=== PATIENT | female | born 2005 | race Two or more races ===

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

== ENCOUNTER 2025-01-13 09:40 | Inpatient (IN) | payer OTHER ==
[2025-01-13] MEDS: LACTATED RINGERS SOLUTION 1,000 ML/1,000 ML INFUS.BAG IV SCH (10:15)
[2025-01-13 11:21] VITALS: BMI 31.2
[2025-01-13 11:45] LABS: ABSOLUTE IMMATURE GRANULOCYTES 0.39 x10^3/uL (0.0-0.031); BASOPHILS # 0.06 x10^3/uL (0.01-0.08); EOSINOPHIL % 0.6 % (0.7-5.8); EOSINOPHILS # 0.08 x10^3/uL (0.04-0.36); HEMATOCRIT 33.3 % (34.1-44.9); HEMOGLOBIN 10.4 g/dL (11.2-15.7); MCHC 31.2 g/dl (32.2-35.5); MEAN CELL VOLUME 88.6 fl (79.4-94.8); MEAN PLT VOLUME 11.9 fl (9.4-12.3); MONOCYTE # 1.03 x10^3/uL (0.24-0.86); MONOCYTE % 7.3 % (4.7-12.5); PLATELET COUNT 130 x10^3/uL (182-369); RDW 20.7 % (12.0-16.2)
[2025-01-13 11:51] LABS: INR 1.12 (0.83-1.09); PROTHROMBIN TIME (PATIENT) 12.3 SEC (9.7-13.0)
[2025-01-13 12:04] LABS: POTASSIUM 3.9 mmol/L (3.5-5.1)
[2025-01-13 12:06] LABS: BLOOD UREA NITROGEN 6.7 mg/dL (7-18)
[2025-01-13 12:10] LABS: CREATININE 0.4 mg/dL (0.55-1.3)
[2025-01-13] MEDS: DINOPROSTONE 10 MG VAGINAL SUPPOSITORY VG ONE ×2 (13:25→16:24)
[2025-01-13] MEDS: LACTATED RINGERS SOLUTION 1,000 ML IV SCH (16:23)
[2025-01-14] MEDS ORDERED: BUTORPHANOL TARTRATE 2 MG/ML VIAL ONE (00:23)
[2025-01-14] MEDS ORDERED: PROMETHAZINE HCL 25 MG/1 ML VIAL ONE (00:23)
[2025-01-14] MEDS: BUTORPHANOL TARTRATE 2 MG/ML VIAL IVPB ONE (00:30)
[2025-01-14] MEDS: PROMETHAZINE HCL 25 MG/1 ML VIAL IVPB ONE (00:30)
[2025-01-14] MEDS ORDERED: NALOXONE HCL 0.4 MG/ML VIAL IVPUSH PRN (02:35)
[2025-01-14] MEDS ORDERED: FENTANYL/BUPIVACAINE/NS/PF - PCEA - 50 ML DISP.SYRIN EP ONE (02:35)
[2025-01-14] MEDS ORDERED: FENTANYL CITRATE/PF 50 MCG/ML VIAL ONE (02:39)
[2025-01-14] MEDS ORDERED: BUPIVACAINE HCL/PF 0.25% (2.5MG/ML) 10 ML VIAL ONE (02:39)
[2025-01-14] MEDS: FENTANYL/BUPIVACAINE/NS/PF - PCEA - 50 ML DISP.SYRIN EP SCH (02:55)
[2025-01-14] MEDS ORDERED: LIDOCAINE HCL 1% PRESERVATIVE FREE - 30ML VIAL ONE (04:19)
[2025-01-14] MEDS ORDERED: OXYTOCIN 20 UNITS in 0.9% NS 20 UNIT/1,000 ML INFUS.BAG IV ONE ×2 (04:19→07:59)
[2025-01-14] MEDS: OXYTOCIN 20 UNITS in 0.9% NS 20 UNIT/1,000 ML INFUS.BAG IV SCH (05:17)
[2025-01-14] MEDS ORDERED: MISOPROSTOL 200 MCG TABLET ONE (05:18)
[2025-01-14] MEDS: MISOPROSTOL 200 MCG TABLET PV ONE (05:19)
[2025-01-14] MEDS: MISOPROSTOL 200 MCG TABLET PR ONE (05:19)
[2025-01-14 05:20] LABS: CORD BASE EXCESS -2.4 mmol/L (0-2); CORD HCO3 22.4 mmHg (20-29); CORD HCO3 24.1 mmHg (20-29); CORD PCO2 46.1 mmHg (30-78); CORD PCO2 48.6 mmHg (30-78); CORD pH 7.305 (7.14-7.44); CORD pH 7.314 (7.14-7.44)
[2025-01-14 06:26] VITALS: RESP 18
[2025-01-14] MEDS ORDERED: WITCH HAZEL 50% (TUCKS) 40 PAD/JAR PAD TP PRN (06:40)
[2025-01-14] MEDS ORDERED: METHYLERGONOVINE MALEATE 0.2 MG/1 ML AMP IM PRN (06:40)
[2025-01-14] MEDS ORDERED: BENZOCAINE 28 GM HEMORRHOIDAL OINTMENT TP PRN (06:40)
[2025-01-14] MEDS ORDERED: ACETAMINOPHEN 325 MG TABLET (FP) PO PRN (06:40)
[2025-01-14] MEDS ORDERED: BISACODYL 10 MG SUPP.RECT RC PRN (06:40)
[2025-01-14] MEDS ORDERED: IBUPROFEN 600 MG TABLET (FP) PO ONE (07:59)
[2025-01-14] MEDS: IBUPROFEN 600 MG TABLET (FP) PO PRN (08:02)
[2025-01-14] MEDS: BENZOCAINE 20% 57 GM BOTTLE TP PRN (21:51)
[2025-01-15 08:08] LABS: HEMATOCRIT 26.6 % (34.1-44.9); HEMOGLOBIN 8.4 g/dL (11.2-15.7); MCHC 31.6 g/dl (32.2-35.5); RDW 20.2 % (12.0-16.2)
[2025-01-15 08:09] LABS: ABSOLUTE IMMATURE GRANULOCYTES 0.36 x10^3/uL (0.0-0.031); BASOPHILS # 0.08 x10^3/uL (0.01-0.08); EOSINOPHIL % 0.8 % (0.7-5.8); EOSINOPHILS # 0.12 x10^3/uL (0.04-0.36); MEAN CELL VOLUME 88.7 fl (79.4-94.8); MONOCYTE % 7.4 % (4.7-12.5); PLATELET COUNT 130 x10^3/uL (182-369)
[2025-01-15] MEDS ORDERED: SENNOSIDES/DOCUSATE COMBO (SENNA PLUS) TABLET (UD) PO PRN (22:00)
[2025-01-15 22:21] VITALS: TEMP 97.9
[2025-01-16 12:52] VITALS: BP 99/54; PULSE 91
== END 2025-01-16 12:40 | disposition home or self-care (01) | DRG 560 ==
LOC: JLDR 09:40 → J3W 01-14 08:10
PROVIDERS: ADMIT Obstetrics & Gynecology Obstetrics; ATTEND Obstetrics & Gynecology Obstetrics
PROC: 3E0P7VZ Introduction of Hormone into Female Reproductive, Via Natural or Artificial Opening (ICD-10-PCS; 2025-01-13)
PROC: 0KQM0ZZ Repair Perineum Muscle, Open Approach (ICD-10-PCS; principal; 2025-01-14)
PROC: 0W8NXZZ Division of Female Perineum, External Approach (ICD-10-PCS; 2025-01-14)
PROC: 10E0XZZ Delivery of Products of Conception, External Approach (ICD-10-PCS; 2025-01-14)
DX: O48.0 Post-term pregnancy (principal); Z3A.41 41 weeks gestation of pregnancy; O36.63X0 Maternal care for excessive fetal growth, third trimester, not applicable or unspecified; O70.1 Second degree perineal laceration during delivery; Z37.0 Single live birth
CPT/HCPCS: 36415; 36600; 59025; 59409; 76819-TC; 80048; 82803; 85025; 85610; 85730; 86780; 86850; 86900; 86901